=== PATIENT | female | born 1995 | race African-American/Black ===

== ENCOUNTER 2020-02-28 07:47 | Emergency (ER) | payer OTHER ==
[~2020-02-28] VITALS: Ht 157.5 cm; Wt 73.9 kg
[2020-02-28 08:13] LABS: URINE BILIRUBIN NEGATIVE (Negative); URINE BLOOD TRACE (Negative); URINE CLARITY CLEAR; URINE COLOR YELLOW; URINE GLUCOSE-RANDOM* NEGATIVE (Negative); URINE KETONES NEGATIVE (Negative); URINE LEUKOCYTES-REFLEX NEGATIVE (Negative); URINE NITRITE-REFLEX NEGATIVE (Negative); URINE PROTEIN (DIPSTICK) NEGATIVE (Negative); URINE SPECIFIC GRAVITY >= 1.030 (1.005-1.035)
[2020-02-28 08:55] LABS: ABSOLUTE NEUTROPHILS 1.9 thou/uL (1.4-8.2); BASOPHILS 1.2 % (0.0-2.0); HEMATOCRIT 37.5 % (37.0-47.0); HEMOGLOBIN 12.7 gm/dL (12.0-15.0); LYMPHOCYTES 51.7 % (24.0-44.0); MCH 28.3 pg (26.0-34.0); MCV 83.4 fL (80.0-100.0); MONOCYTES 9.2 % (1.0-8.0); PLATELET COUNT 304 thou/uL (150-400); POLYS 33.9 % (36.0-66.0); RBC 4.49 mil/uL (4.20-5.00); RDW 13.5 % (10.5-14.5); WBC 5.6 thou/uL (4.0-11.0)
[2020-02-28 09:12] LABS: CALCIUM 8.3 mg/dL (8.5-10.1); CREATININE 0.8 mg/dL (0.6-1.0); POTASSIUM 3.9 mmol/L (3.5-5.1)
[2020-02-28 11:19] VITALS: BP 102/54
== END 2020-02-28 11:20 | disposition home or self-care (01) ==
LOC: ER 07:47
PROVIDERS: Emergency Medicine
DX: R10.30 Lower abdominal pain, unspecified (principal); R35.0 Frequency of micturition

== ENCOUNTER 2021-02-21 15:03 | Emergency (ER) | payer OTHER ==
[~2021-02-21] VITALS: Ht 157.5 cm; Wt 64.0 kg
[2021-02-21 15:20] VITALS: BP 95/57
[2021-02-21 15:28] LABS: URINE BILIRUBIN NEGATIVE (Negative); URINE BLOOD NEGATIVE (Negative); URINE CLARITY CLEAR; URINE COLOR YELLOW; URINE GLUCOSE-RANDOM* NEGATIVE (Negative); URINE KETONES NEGATIVE (Negative); URINE LEUKOCYTES-REFLEX NEGATIVE (Negative); URINE NITRITE-REFLEX NEGATIVE (Negative); URINE PROTEIN (DIPSTICK) NEGATIVE (Negative); URINE SPECIFIC GRAVITY 1.025 (1.005-1.035); URINE UROBILINOGEN 0.2 E.U./dl (0.2-1.0)
[2021-02-21] MEDS ORDERED: ZANAFLEX4 MG PO (15:48)
[2021-02-21] MEDS ORDERED: MOBIC7.5 MG PO (15:48)
== END 2021-02-21 15:47 | disposition home or self-care (01) ==
LOC: ER 15:03
PROVIDERS: Nurse Practitioner
DX: M54.5 Low back pain (principal); R10.9 Unspecified abdominal pain; M25.551 Pain in right hip; M25.552 Pain in left hip; G47.00 Insomnia, unspecified

== ENCOUNTER 2021-04-17 18:48 | Emergency (ER) | payer OTHER ==
[~2021-04-17] VITALS: Ht 157.5 cm; Wt 63.5 kg
[~2021-04-17 18:48] MED LIST: MOBIC7.5 MG PO; ZANAFLEX4 MG PO
[2021-04-17 19:00] VITALS: BP 105/64
[2021-04-17 19:15] LABS: URINE BILIRUBIN NEGATIVE (Negative); URINE BLOOD NEGATIVE (Negative); URINE CLARITY CLEAR; URINE COLOR YELLOW; URINE GLUCOSE-RANDOM* NEGATIVE (Negative); URINE KETONES NEGATIVE (Negative); URINE LEUKOCYTES-REFLEX NEGATIVE (Negative); URINE NITRITE-REFLEX NEGATIVE (Negative); URINE PROTEIN (DIPSTICK) NEGATIVE (Negative); URINE SPECIFIC GRAVITY 1.025 (1.005-1.035)
[2021-04-17] MEDS ORDERED: FLAGYL500 M1 PO (20:04)
== END 2021-04-17 20:16 | disposition home or self-care (01) ==
LOC: ER 18:48
PROVIDERS: Nurse Practitioner
DX: N76.0 Acute vaginitis (principal); B96.89 Other specified bacterial agents as the cause of diseases classified elsewhere